=== PATIENT | female | born 2000 | race Caucasian/White ===

== ENCOUNTER 2021-10-21 20:05 | Emergency (ER) | payer OTHER ==
[2021-10-21] MEDS ORDERED: Sodium Chloride 0.9% 10 ML Syringe FLUSH PRN (20:56)
[2021-10-21] MEDS ORDERED: Sodium Chloride 0.9% 1,000 ML IV STA (21:06)
== END 2021-10-21 23:41 | disposition home or self-care (01) ==
LOC: JD.ED 20:05
DX: O20.0 Threatened abortion (principal); Z3A.01 Less than 8 weeks gestation of pregnancy; Z88.0 Allergy status to penicillin; Z79.899 Other long term (current) drug therapy
CPT/HCPCS: 36415; 76817; 80053; 81001; 84702; 85025; 86900; 86901; 99284; J3490; J7030